=== PATIENT | female | born 1995 | race African-American/Black ===

== ENCOUNTER 2023-10-31 22:02 | Emergency (ER) | payer OTHER ==
[~2023-10-31] VITALS: Ht 149.9 cm; Wt 66.0 kg
[2023-10-31 22:19] VITALS: BP 128/81; RESP 16; TEMP 98.3; O2SAT 100
[2023-10-31 22:26] VITALS: PULSE 86
[2023-10-31 23:04] LABS: CLARITY URINE CLEAR (CLEAR); COLOR URINE YELLOW (YELLOW); GLUCOSE URINE NEGATIVE (NEGATIVE); KETONES URINE TRACE (NEGATIVE); LEUKOCYTE ESTERASE URINE NEGATIVE (NEGATIVE); NITRITE URINE NEGATIVE (NEGATIVE); OCCULT BLOOD URINE NEGATIVE (NEGATIVE); PH URINE 6.5 (4.5-8.0); PROTEIN URINE NEGATIVE (NEGATIVE)
[2023-10-31 23:22] LABS: BACTERIA URINE 1+; RBC URINE 0-2 /hpf (0-2); SQUAMOUS EPITHELIAL CELL URINE 1+ /lpf (RARE/1+); WBC URINE 0-2 /hpf (0-2)
[2023-10-31 23:23] LABS: MUCUS URINE 1+ /lpf (< = 2+)
[2023-10-31] MEDS ORDERED: ACETAMINOPHEN 500MG TABLET PO ONE (23:30)
== END 2023-11-01 00:22 | disposition left against medical advice (07) ==
LOC: ER 22:02
DX: S09.90XA Unspecified injury of head, initial encounter (principal); J45.909 Unspecified asthma, uncomplicated; W18.39XA Other fall on same level, initial encounter; Y93.89 Activity, other specified; Y92.89 Other specified places as the place of occurrence of the external cause; Y99.8 Other external cause status
CPT/HCPCS: 81003; 81025; 99283